=== PATIENT | female | born 1950 | race Caucasian/White ===

== ENCOUNTER 2019-02-22 19:03 | Inpatient (IN) | payer MEDICARE ==
[~2019-02-22] VITALS: Ht 154.9 cm; Wt 61.3 kg
[2019-02-22] MEDS: ALBUTEROL/IPRATROPIUM 2.5MG/0.5MG, 3 ML HHN SCH (10:30)
[~2019-02-22 19:03] MED LIST: ALPR-475 PO; CHOL100012 PO; CHOL5000 PO; CITA40TA12 PO; CYAN25009 PO; FLUT1BLS3 INH; FURO-92 PO; FURO40TA6 PO; LISI-167 PO; METH4TAB2 PO; MULT-717 PO; OMEP-110 PO; OMEPRAZOLE PO; OXYC-307 PO; OXYC10TA47 PO; POTA20TA89 PO; POTASSIUM PO; TEMA15CA PO; TRAZ-137 PO; VIT1TABL32 PO; albuterol neb NEB; lisinopril PO
[2019-02-22] MEDS ORDERED: LORazepam 2 MG/ML, 1ML ONE (19:09)
[2019-02-22 19:30] LABS: BASOPHILS # (AUTO) 0.03 x10^3/uL (0-0.1); BASOPHILS % (AUTO) 0 % (0-1); EOSINOPHILS % (AUTO) 0 % (1-7); LYMPHOCYTES # (AUTO) 2.24 x10^3/uL (1-3.4); LYMPHOCYTES % (AUTO) 21 % (22-44); MD NO; MEAN CORPUSCULAR HEMOGLOBIN 33.6 pg (27.0-34.8); MEAN CORPUSCULAR HGB CONC 33.9 g/dL (32.4-35.8); MEAN CORPUSCULAR VOLUME 99.2 fL (80-100); MEAN PLATELET VOLUME 8.7 fL (7.4-10.4); MONOCYTES % (AUTO) 5 % (2-9); NEUTROPHILS # (AUTO) 8.18 x10^3/uL (1.8-6.8); NEUTROPHILS % (AUTO) 75 % (42-75); PLATELET COUNT 158 x10^3/uL (130-400); RED BLOOD COUNT 3.96 x10^6/uL (3.82-5.3)
[2019-02-22] MEDS ORDERED: LORazepam 2 MG/ML, 1ML IVPush ONE (19:30)
--- NOTE | 2019-02-22 19:30 | NUR ---
PT RESTING IN BED ON MONITOR IN GOWN WITHOUT RESP DISTRESS AT THIS TIME. PT WAS MEDICATED FOR ANXIETY AND NOW REPORTS RESP MUCH IMPROVED. BLOOD TO LAB AND PT WITH 2 LINES AND VSS.
[2019-02-22 19:37] LABS: ALBUMIN 3.3 g/dL (3.4-5.0); ANION GAP 6 mmol/L (5-15); CALCIUM 8.7 mg/dL (8.5-10.1); CHLORIDE 103 mmol/L (98-107)
[2019-02-22 19:42] LABS: ALANINE AMINOTRANSFERASE 104 U/L (12-78); ALKALINE PHOSPHATASE 155 U/L (45-117); BILIRUBIN,TOTAL 0.7 mg/dL (0.2-1.0); CREATININE 0.72 mg/dL (0.55-1.02); TOTAL PROTEIN 6.9 g/dL (6.4-8.2); TROPONIN I < 0.015 ng/mL (0.000-0.045)
--- NOTE | 2019-02-22 19:43 | NUR ---
Maribel jones in EDM - 02/22/19 at 1945 by JANIE PT MOVED TO ED #16 AND REPORT GIVEN TO QUE BROUSSARD
--- NOTE | 2019-02-22 19:45 | NUR ---
REPORT GIVEN TO MERISSA RN AND PT MOVED TO #16 IN ED.
[2019-02-22] MEDS ORDERED: KETOROLAC 30 MG/1 ML ONE (19:55)
[2019-02-22] MEDS ORDERED: PROCHLORPERAZINE 5 MG/ML, 2ML ONE (19:55)
[2019-02-22] MEDS ORDERED: PROCHLORPERAZINE 5 MG/ML, 2ML IV ONE (20:00)
[2019-02-22] MEDS ORDERED: KETOROLAC 30 MG/1 ML IVPush ONE (20:00)
[2019-02-22] MEDS ORDERED: OMNIPAQUE 350 MG/ML, 100ML BOTTLE ONE (21:16)
--- NOTE | 2019-02-22 21:28 | NUR ---
pt is resting at bed side no c/o pt wants to go home " i am much better now "
--- NOTE | 2019-02-22 22:01 | NUR ---
pt is resting vss stable
[2019-02-22] MEDS ORDERED: ONDANSETRON 2MG/ML, 2ML IVPush PRN (22:30)
[2019-02-22] MEDS ORDERED: AZITHROMYCIN 500 MG in SODIUM CHLORIDE 0.9% 250 ML IV ONE (22:30)
--- NOTE | 2019-02-22 22:56 | NUR ---
blood cultures were ordered then will start iv abx given report to katherine levy
[2019-02-22] MEDS ORDERED: GUAIFENESIN/DM 200-20MG, 10ML UDC PO PRN (23:00)
[2019-02-22] MEDS ORDERED: BISACODYL 10 MG SUPP PR PRN (23:00)
[2019-02-22] MEDS ORDERED: PHARMACOKINETIC MONITORING MC PRN (23:00)
[2019-02-22] MEDS ORDERED: ONDANSETRON ODT 4 MG PO PRN (23:00)
[2019-02-22] MEDS ORDERED: BUTALB/APAP/CAFFEINE 50MG/325MG/40MG PO ONE (23:00)
[2019-02-22] MEDS ORDERED: VANCOMYCIN PER PHARMACY MC PRN (23:00)
[2019-02-22] MEDS ORDERED: POLYETHYLENE GLYCOL 17 GM PACKET PO PRN (23:00)
[2019-02-22] MEDS ORDERED: FUROSEMIDE 40 MG TABLET PO PRN (23:00)
[2019-02-22] MEDS ORDERED: ACETAMINOPHEN 325 MG TABLET PO PRN (23:00)
[2019-02-22] MEDS ORDERED: PLEASE ENTER WEIGHT MC SCH (23:30)
[2019-02-22] MEDS ORDERED: POTASSIUM CHLORIDE 20 MEQ TAB.ER.PRT PO PRN (23:30)
[2019-02-22 23:40] VITALS: BP 128/87
[2019-02-23 00:02] VITALS: BP 128/87
[2019-02-23] MEDS: HEPARIN 5,000 UNITS/ML, 1ML SQ SCH ×3 (00:11→18:22)
[2019-02-23] MEDS: TRAZODONE 100MG TABLET PO SCH ×2 (00:11→21:56)
[2019-02-23] MEDS: SODIUM CHLORIDE FLUSH 10ML SYR IVF SCH ×3 (00:12→21:00)
[2019-02-23] MEDS: PIPERACILLIN/TAZO/PMX 3.375GM 50 ML IV SCH ×4 (00:17→18:22)
[2019-02-23] MEDS ORDERED: VANCOMYCIN 1,200 MG in SODIUM CHLORIDE 0.9% 250 ML IV SCH (01:00)
[2019-02-23 02:50] VITALS: BP 127/85
[2019-02-23] MEDS: OMEPRAZOLE 20 MG CAPSULE.DR PO SCH (05:34)
[2019-02-23 06:58] VITALS: BP 132/78
[2019-02-23] MEDS ORDERED: ALBUTEROL SULFATE 2.5 MG/3 ML NPPB SCH (07:00)
[2019-02-23 07:14] LABS: ALANINE AMINOTRANSFERASE 77 U/L (12-78); ALBUMIN 2.6 g/dL (3.4-5.0); ANION GAP 5 mmol/L (5-15); CALCIUM 8.3 mg/dL (8.5-10.1); CHLORIDE 107 mmol/L (98-107); CREATININE 0.64 mg/dL (0.55-1.02)
[2019-02-23 07:16] LABS: ALKALINE PHOSPHATASE 110 U/L (45-117); BILIRUBIN,TOTAL 0.6 mg/dL (0.2-1.0); TOTAL PROTEIN 5.5 g/dL (6.4-8.2)
[2019-02-23 07:20] LABS: BASOPHILS # (AUTO) 0.02 x10^3/uL (0-0.1); BASOPHILS % (AUTO) 0 % (0-1); EOSINOPHILS # (AUTO) 0.01 x10^3/uL (0-0.4); EOSINOPHILS % (AUTO) 0 % (1-7); LYMPHOCYTES # (AUTO) 1.59 x10^3/uL (1-3.4); LYMPHOCYTES % (AUTO) 21 % (22-44); MD NO; MEAN CORPUSCULAR HEMOGLOBIN 32.5 pg (27.0-34.8); MEAN CORPUSCULAR HGB CONC 32.5 g/dL (32.4-35.8); MEAN PLATELET VOLUME 8.9 fL (7.4-10.4); MONOCYTES # (AUTO) 0.56 x10^3/uL (0.2-0.8); MONOCYTES % (AUTO) 7 % (2-9); NEUTROPHILS % (AUTO) 72 % (42-75); PLATELET COUNT 142 x10^3/uL (130-400); RED BLOOD COUNT 3.42 x10^6/uL (3.82-5.3); RED CELL DISTRIBUTION WIDTH 15.3 % (9.6-15.2)
[2019-02-23] MEDS ORDERED: TEMPLATE NON-FORMULARY MED. (Vit A,C & E/Lutein/Minerals** (Ocuvite Tablet**) 1 TAB) PO SCH (09:00)
[2019-02-23] MEDS: CITALOPRAM 20 MG TABLET PO SCH (09:07)
[2019-02-23] MEDS: MULTIVITAMINS/MINERALS TABLET PO SCH (09:07)
[2019-02-23] MEDS: CYANOCOBALAMIN 1,000 MCG TABLET PO SCH (09:08)
[2019-02-23] MEDS: SENNA/DOCUSATE TABLET PO SCH (09:08)
[2019-02-23] MEDS: CHOLECALCIFEROL 5,000u TAB PO SCH (09:08)
[2019-02-23] MEDS: OXYcodone/APAP 10/325MG TABLET PO PRN ×2 (09:23→18:22)
[2019-02-23] MEDS: BUDESONIDE 0.5 MG/2 ML INHA INH SCH ×2 (10:30→18:11)
[2019-02-23 13:00] VITALS: BP 109/69
[2019-02-23] MEDS: ALBUTEROL/IPRATROPIUM 2.5MG/0.5MG, 3 ML HHN SCH ×2 (14:13→18:11)
[2019-02-23] MEDS ORDERED: SODIUM CHLORIDE INHALATION 7%, 4 ML NPPB ONE (14:30)
[2019-02-23 19:55] VITALS: BP 141/93
[2019-02-24] MEDS: PIPERACILLIN/TAZO/PMX 3.375GM 50 ML IV SCH ×2 (00:06→05:54)
[2019-02-24] MEDS: OXYcodone/APAP 10/325MG TABLET PO PRN ×4 (00:09→22:14)
[2019-02-24] MEDS: ALBUTEROL/IPRATROPIUM 2.5MG/0.5MG, 3 ML HHN SCH ×4 (00:17→19:12)
[2019-02-24 01:08] VITALS: BP 136/88
[2019-02-24] MEDS: HEPARIN 5,000 UNITS/ML, 1ML SQ SCH ×4 (02:14→22:13)
[2019-02-24] MEDS: OMEPRAZOLE 20 MG CAPSULE.DR PO SCH (05:54)
[2019-02-24 06:34] LABS: BASOPHILS # (AUTO) 0.01 x10^3/uL (0-0.1); BASOPHILS % (AUTO) 0 % (0-1); EOSINOPHILS # (AUTO) 0.03 x10^3/uL (0-0.4); EOSINOPHILS % (AUTO) 1 % (1-7); LYMPHOCYTES # (AUTO) 1.48 x10^3/uL (1-3.4); LYMPHOCYTES % (AUTO) 21 % (22-44); MD NO; MEAN CORPUSCULAR HEMOGLOBIN 32.5 pg (27.0-34.8); MEAN CORPUSCULAR HGB CONC 32.6 g/dL (32.4-35.8); MEAN CORPUSCULAR VOLUME 99.7 fL (80-100); MEAN PLATELET VOLUME 9.1 fL (7.4-10.4); MONOCYTES # (AUTO) 0.44 x10^3/uL (0.2-0.8); MONOCYTES % (AUTO) 6 % (2-9); NEUTROPHILS # (AUTO) 5.16 x10^3/uL (1.8-6.8); NEUTROPHILS % (AUTO) 72 % (42-75); PLATELET COUNT 131 x10^3/uL (130-400); RED BLOOD COUNT 3.52 x10^6/uL (3.82-5.3); RED CELL DISTRIBUTION WIDTH 15.4 % (9.6-15.2)
[2019-02-24 06:45] LABS: CHLORIDE 105 mmol/L (98-107)
[2019-02-24 06:49] LABS: ALANINE AMINOTRANSFERASE 71 U/L (12-78); ALBUMIN 2.7 g/dL (3.4-5.0); ALKALINE PHOSPHATASE 112 U/L (45-117); ANION GAP 6 mmol/L (5-15); BILIRUBIN,TOTAL 0.8 mg/dL (0.2-1.0); CALCIUM 8.5 mg/dL (8.5-10.1); CREATININE 0.83 mg/dL (0.55-1.02); TOTAL PROTEIN 5.8 g/dL (6.4-8.2)
[2019-02-24 07:31] VITALS: BP 139/82
[2019-02-24] MEDS: BUDESONIDE 0.5 MG/2 ML INHA INH SCH ×2 (07:42→19:11)
[2019-02-24] MEDS: SODIUM CHLORIDE FLUSH 10ML SYR IVF SCH ×2 (09:28→22:14)
[2019-02-24] MEDS: CEFTRIAXONE PMX 2GM/50ML 50 ML IV SCH (09:28)
[2019-02-24] MEDS: CYANOCOBALAMIN 1,000 MCG TABLET PO SCH (09:42)
[2019-02-24] MEDS: CITALOPRAM 20 MG TABLET PO SCH (09:43)
[2019-02-24] MEDS: CHOLECALCIFEROL 5,000u TAB PO SCH (09:43)
[2019-02-24] MEDS: MULTIVITAMINS/MINERALS TABLET PO SCH (09:44)
[2019-02-24] MEDS: SENNA/DOCUSATE TABLET PO SCH (09:48)
[2019-02-24 12:40] VITALS: BP 139/81
[2019-02-24 19:34] VITALS: BP 136/82
[2019-02-24] MEDS: TRAZODONE 100MG TABLET PO SCH (22:14)
[2019-02-24 23:10] LABS: MICROSCOPIC NOT IND
[2019-02-24 23:14] LABS: CULTURE INDICATED? NO
[2019-02-25 01:30] VITALS: BP 151/90
[2019-02-25] MEDS: ALBUTEROL/IPRATROPIUM 2.5MG/0.5MG, 3 ML HHN SCH ×4 (02:28→20:33)
[2019-02-25] MEDS: OXYcodone/APAP 10/325MG TABLET PO PRN ×3 (04:23→18:21)
[2019-02-25 05:28] LABS: BASOPHILS # (AUTO) 0.02 x10^3/uL (0-0.1); BASOPHILS % (AUTO) 0 % (0-1); EOSINOPHILS % (AUTO) 0 % (1-7); LYMPHOCYTES # (AUTO) 1.41 x10^3/uL (1-3.4); LYMPHOCYTES % (AUTO) 17 % (22-44); MD NO; MEAN CORPUSCULAR HEMOGLOBIN 33.8 pg (27.0-34.8); MEAN CORPUSCULAR HGB CONC 33.8 g/dL (32.4-35.8); MEAN CORPUSCULAR VOLUME 100.2 fL (80-100); MEAN PLATELET VOLUME 9.2 fL (7.4-10.4); MONOCYTES % (AUTO) 6 % (2-9); NEUTROPHILS # (AUTO) 6.25 x10^3/uL (1.8-6.8); NEUTROPHILS % (AUTO) 76 % (42-75); PLATELET COUNT 137 x10^3/uL (130-400); RED BLOOD COUNT 3.29 x10^6/uL (3.82-5.3); RED CELL DISTRIBUTION WIDTH 15.3 % (9.6-15.2)
[2019-02-25 05:42] LABS: ALBUMIN 2.6 g/dL (3.4-5.0); ANION GAP 5 mmol/L (5-15); CHLORIDE 105 mmol/L (98-107)
[2019-02-25 05:45] LABS: CREATININE 0.57 mg/dL (0.55-1.02)
[2019-02-25] MEDS: OMEPRAZOLE 20 MG CAPSULE.DR PO SCH (06:22)
[2019-02-25 07:10] VITALS: BP 159/80
[2019-02-25] MEDS: SENNA/DOCUSATE TABLET PO SCH (08:11)
[2019-02-25] MEDS: BUDESONIDE 0.5 MG/2 ML INHA INH SCH ×2 (08:55→20:33)
[2019-02-25] MEDS: SODIUM CHLORIDE FLUSH 10ML SYR IVF SCH ×2 (09:00→21:00)
[2019-02-25] MEDS: CITALOPRAM 20 MG TABLET PO SCH (09:13)
[2019-02-25] MEDS: MULTIVITAMINS/MINERALS TABLET PO SCH (09:13)
[2019-02-25] MEDS: CHOLECALCIFEROL 5,000u TAB PO SCH (09:13)
[2019-02-25] MEDS: CYANOCOBALAMIN 1,000 MCG TABLET PO SCH (09:13)
[2019-02-25] MEDS: LISINOPRIL 10 MG TABLET PO SCH (09:16)
[2019-02-25] MEDS: CEFTRIAXONE PMX 2GM/50ML 50 ML IV SCH (09:16)
[2019-02-25] MEDS: HEPARIN 5,000 UNITS/ML, 1ML SQ SCH ×2 (11:07→21:39)
[2019-02-25] MEDS ORDERED: BUTALB/APAP/CAFFEINE 50MG/325MG/40MG PO PRN (12:00)
[2019-02-25 13:31] VITALS: BP 119/76
[2019-02-25 20:20] VITALS: BP 134/86
[2019-02-25] MEDS: TRAZODONE 100MG TABLET PO SCH (21:39)
[2019-02-26] MEDS: OXYcodone/APAP 10/325MG TABLET PO PRN ×2 (00:39→09:35)
[2019-02-26] MEDS: ALBUTEROL/IPRATROPIUM 2.5MG/0.5MG, 3 ML HHN SCH ×2 (01:01→10:35)
[2019-02-26 01:35] VITALS: BP 111/61
[2019-02-26] MEDS: OMEPRAZOLE 20 MG CAPSULE.DR PO SCH (05:55)
[2019-02-26] MEDS: HEPARIN 5,000 UNITS/ML, 1ML SQ SCH ×2 (05:55→12:00)
[2019-02-26 08:26] VITALS: BP 143/90
[2019-02-26] MEDS: SENNA/DOCUSATE TABLET PO SCH (09:00)
[2019-02-26] MEDS: SODIUM CHLORIDE FLUSH 10ML SYR IVF SCH (09:00)
[2019-02-26] MEDS: CITALOPRAM 20 MG TABLET PO SCH (10:30)
[2019-02-26] MEDS: LISINOPRIL 10 MG TABLET PO SCH (10:30)
[2019-02-26] MEDS: MULTIVITAMINS/MINERALS TABLET PO SCH (10:32)
[2019-02-26] MEDS: BUDESONIDE 0.5 MG/2 ML INHA INH SCH (10:35)
[2019-02-26] MEDS ORDERED: CEFD300C37 PO (10:36)
[2019-02-26] MEDS ORDERED: PRED20TA PO (10:36)
[2019-02-26] MEDS: CYANOCOBALAMIN 1,000 MCG TABLET PO SCH (10:38)
[2019-02-26] MEDS: CHOLECALCIFEROL 5,000u TAB PO SCH (10:38)
--- NOTE | 2019-02-26 10:44 | NUR ---
REC: Regular diet with thin liquids Addendum: 02/26/19 at 1044 by Veronique FARFAN Amended: Links added.
[2019-02-26] MEDS: CEFTRIAXONE PMX 2GM/50ML 50 ML IV SCH (10:55)
== END 2019-02-26 14:05 | disposition home or self-care (01) | DRG 871 ==
LOC: ED 21:28 → EDIP 22:27 → 4WST 23:22 → DCLOUNGE 02-26 14:00
PROVIDERS: ADMIT Family Medicine; ATTEND Family Medicine
DX: A40.9 Streptococcal sepsis, unspecified (principal); J15.9 Unspecified bacterial pneumonia; J96.21 Acute and chronic respiratory failure with hypoxia; E44.0 Moderate protein-calorie malnutrition; J44.0 Chronic obstructive pulmonary disease with (acute) lower respiratory infection; J44.1 Chronic obstructive pulmonary disease with (acute) exacerbation; J45.901 Unspecified asthma with (acute) exacerbation; F32.9 Major depressive disorder, single episode, unspecified; G43.909 Migraine, unspecified, not intractable, without status migrainosus; F41.1 Generalized anxiety disorder; I10 Essential (primary) hypertension; M41.9 Scoliosis, unspecified; M81.0 Age-related osteoporosis without current pathological fracture; Z68.25 Body mass index [BMI] 25.0-25.9, adult; Z79.899 Other long term (current) drug therapy; Z87.891 Personal history of nicotine dependence; Z88.2 Allergy status to sulfonamides; Z88.8 Allergy status to other drugs, medicaments and biological substances
CPT/HCPCS: 36415; 71045; 71275; 74177; 74230; 80048; 80053; 80074; 81003; 82040; 83735; 83880; 84100; 84145; 84484; 85025; 87040; 87070; 87077; 87205; 94640; 96374; G0378; J0456; J0696; J1644; J1885; J2543; J3370; J7613; J7620; J7626; Q9967; J0780; J2060; J7050; J7512